=== PATIENT | male | born 1985 | race Caucasian/White ===

== ENCOUNTER 2017-12-25 12:17 | Emergency (ER) | payer BC ==
--- NOTE | 2017-12-25 13:43 | UC ---
Ear Complaint HPI - HPI Summary HPI Summary: Pt presents c/o URI like symptoms, cough, nasal congestion X2 weeks that has resolved since onset. Pt now c/o right ear painthat radiates to right upper molars. Pt also reports loss of hearing that began last night that resolved this morning - History of Current Complaint Stated Complaint: EAR/SINUS Time Seen by Provider: 12/25/17 13:22 Hx Obtained From: Patient Onset/Duration: Gradual Onset, Lasting Hours, Still Present Severity Initially: Mild Severity Currently: Moderate Associated Signs/Symptoms: Positive: Hearing Loss - resolved, URI Symptoms - Allergies/Home Medications Allergies/Adverse Reactions: Allergies Allergy/AdvReac Type Severity Reaction Status Date / Time No Known Allergies Allergy Verified 12/25/17 13:45 Home Medications: Home Medications Multivitamin [Multivitamins] 1 cap PO DAILY 12/25/17 [History Confirmed 12/25/17 ] PMH/Surg Hx/FS Hx/Imm Hx Previously Healthy: Yes - Surgical History Surgical History: None - Family History Known Family History: Negative: Cardiac Disease - Social History Occupation: Employed Full-time Lives: With Family Alcohol Use: Weekly Substance Use Type: None Smoking Status (MU): Never Smoked Tobacco Have You Smoked in the Last Year: No Review of Systems Constitutional: Negative Skin: Negative Eyes: Negative ENT: Ear Ache, Sinus Congestion Respiratory: Cough Cardiovascular: Negative Gastrointestinal: Negative Genitourinary: Negative Motor: Negative Neurovascular: Negative Musculoskeletal: Negative Neurological: Negative Psychological: Negative Is Patient Immunocompromised?: No All Other Systems Reviewed And Are Negative: Yes Physical Exam Triage Information Reviewed: Yes Appearance: Well-Appearing Vital Signs Reviewed: Yes Eye Exam: Normal ENT: Positive: Nasal congestion, TM red - right TM Dental Exam: Normal Neck exam: Normal Respiratory Exam: Normal Cardiovascular Exam: Normal Musculoskeletal Exam: Normal Neurological Exam: Normal Psychological Exam: Normal Skin Exam: Normal Ear Complaint Course/Dx - Differential Dx/Diagnosis Differential Diagnosis/HQI/PQRI: Otitis Media, URI Provider Diagnoses: Right OM Discharge - Sign-Out/Discharge Documenting (check all that apply): Discharge - Discharge Plan Condition: Stable Disposition: HOME Prescriptions: Amoxicillin PO (*) [Amoxicillin 500 MG CAP*] 500 mg PO Q12H #20 cap Patient Education Materials: Ear Infection (ED) Referrals: Juancho Traylor MD [Primary Care Provider] - If Needed - Billing Disposition and Condition Condition: STABLE Disposition: HOME
[2017-12-25 13:58] VITALS: BP 145/95
== END 2017-12-25 14:00 | disposition home or self-care (01) ==
LOC: UCCORT 12:17
DX: H66.91 Otitis media, unspecified, right ear (principal)
CPT/HCPCS: 99212; G0463

== ENCOUNTER 2018-08-03 11:07 | Day surgery (SDC) | payer BC ==
--- NOTE | 2018-07-25 09:42 | HP ---
AMENDED REPORT NOW INCLUDES COSIGNER DESIGNATION PREOPERATIVE HISTORY AND PHYSICAL: DATE OF ADMISSION/SURGERY: 08/03/18 DATE OF OFFICE VISIT: 07/22/18 ATTENDING SURGEON: Dr. David Bang.* (DICTATED BY LYLY MELLO) PROCEDURE: Left shoulder arthroscopic decompression, debridement, subpectoral biceps tenodesis, and possible rotator cuff repair. CHIEF COMPLAINT: Left shoulder. HISTORY OF PRESENT ILLNESS: Tripp is a 33-year-old male, who presents to the clinic for left shoulder pain due to biceps tendinitis and a possible rotator cuff tear. He has failed conservative measures and therefore agreed to undergo a left shoulder arthroscopic decompression, debridement, subpectoral biceps tenodesis, and possible rotator cuff repair with Dr. Bang on 08/03/18. PAST MEDICAL HISTORY: Heart murmur since childhood. PAST SURGICAL HISTORY: Oral surgery. Denies prior complications with anesthesia. MEDICATIONS: 1. Multivitamin 1 by mouth daily. 2. Ibuprofen 200 mg 1 by mouth as needed. ALLERGIES: No known drug allergies. FAMILY HISTORY: Positive for diabetes, heart disease, hypertension, and stroke. SOCIAL HISTORY: He lives with his spouse. 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 He denies tobacco use. He reports occasional alcohol consumption. He is right- hand dominant. REVIEW OF SYSTEMS: A 14-point review of systems was reviewed with the patient. Positive for current complaint, otherwise negative. Denies fever, chills, chest pain, shortness of breath, history of DVT or PE, history of bleeding disorder. PHYSICAL EXAMINATION GENERAL: A 33-year-old well-developed, well-nourished male, in no acute distress. Alert and oriented x3. Appropriate mood and affect. Appropriate balance and coordination of the upper extremities. VITAL SIGNS: Height 69.5, weight 297, pulse 92, blood pressure 152/88, BMI 43.2. HEENT: Normocephalic, atraumatic. PERRLA. Throat clear. NECK: Supple. PULMONARY: Lungs are clear to auscultation bilaterally. No wheezing, rhonchi, or rales. CARDIO: Regular rate and rhythm. S1, S2. No murmurs, gallops, or rubs. No edema. ABDOMEN: Positive bowel sounds. Soft, nontender. MUSCULOSKELETAL: Left upper extremity: Skin is intact. No warmth or erythema. Forward flexion to 160, abduction to 150, external rotation to 60, internal rotation to lumbar spine. Good strength to rotator cuff testing with pain. Positive Woodward, Speeds, impingement, Lopez-James. +2 radial pulse. Sensation intact to light touch distally. DIAGNOSTIC STUDIES: MRI of the left shoulder revealed evidence of posterior labral tear, superior labral tear, and rotator cuff tendinosis. No evidence of full- thickness rotator cuff tear. ASSESSMENT: Left shoulder biceps tendinitis, possible rotator cuff tear. PLAN: The patient is scheduled to undergo a left shoulder arthroscopic decompression, debridement, subpectoral biceps tenodesis, and possible rotator cuff repair with Dr. Bang on 08/03/18. He will follow up 10 to 14 days postop for followup and suture removal. Percocet will be used for postop pain management and Keflex for antibiotic prophylaxis. LYLY MELLO [id number]/[facility] #: [id number] [facility]ITALS[facility]man
[~2018-08-03 11:07] MED LIST: Buffered Lidocaine 0.9% SYRIN* 5 ML/SYR SYRINGE INTRADERM ONE; Famotidine IV* 10 MG/ML 2 ML (20 mg) IV ONE; Midazolam* 1 MG/ML 5 ML VIAL (5 MG) ONE; fentaNYL* 50 MCG/ML 2 ML VIAL (100 MCG VIAL) ONE
[2018-08-03] MEDS ORDERED: Famotidine IV* 10 MG/ML 2 ML (20 mg) ONE (11:27)
[2018-08-03] MEDS ORDERED: Buffered Lidocaine 0.9% SYRIN* 5 ML/SYR SYRINGE ONE (11:27)
[2018-08-03] MEDS ORDERED: ceFAZolin 2 GM in NS PREMIX(*) 2 GM/100 ML BAG IVPB ONE (11:27)
[2018-08-03] MEDS ORDERED: ceFAZolin 1 GM ADVAN(*) 1 GM ADDV.VIAL IVPB ONE (13:35)
[2018-08-03] MEDS ORDERED: Ropivacaine* 2 MG/ML 20 ML VIAL (0.2%) ONE (14:00)
[2018-08-03] MEDS ORDERED: Lidocaine 2% PF * 5 ML VIAL ONE ×2 (14:05→15:21)
[2018-08-03] MEDS ORDERED: ROPIVACAINE 5 MG/ML 30 ML BTL (0.5%) ONE (14:06)
[2018-08-03] MEDS ORDERED: KETAMINE HCL* 50 MG/ML 10 ML VIAL ONE (14:32)
[2018-08-03] MEDS ORDERED: fentaNYL* 50 MCG/ML 2 ML VIAL (100 MCG VIAL) ONE (14:47)
[2018-08-03] MEDS ORDERED: Propofol* 10 MG/ML 20 ML BTL IV PUSH ONE (15:21)
[2018-08-03] MEDS ORDERED: Dexamethasone IV* 4 MG/ML 1 ML (4 MG) ONE (15:21)
[2018-08-03] MEDS ORDERED: Ondansetron INJ* 2 MG/ML VIAL ONE (15:21)
[2018-08-03] MEDS ORDERED: Succinylcholine* 20 MG/ML 10 ML VIAL ONE (15:21)
[2018-08-03] MEDS ORDERED: Ketorolac INJ* 30 MG/ML 1 ML VIAL ONE (15:21)
[2018-08-03] MEDS ORDERED: Labetalol IV* 5 MG/ML 20 ML VIAL ONE (17:02)
[2018-08-03] MEDS ORDERED: Labetalol IV* 5 MG/ML 20 ML VIAL IV PUSH ONE (17:16)
[2018-08-03] MEDS ORDERED: Acetaminophen TAB* 325 MG PO PRN (17:17)
[2018-08-03] MEDS ORDERED: oxyCODONE TAB* 5 MG TAB PO PRN (17:17)
[2018-08-03] MEDS ORDERED: HYDROmorphone INJ1* 1 MG/ML SYRINGE IV PRN (17:17)
[2018-08-03] MEDS ORDERED: DiMENhydriNATE IV* 50 MG/ML VIAL IV PUSH PRN (17:17)
[2018-08-03] MEDS ORDERED: Naloxone* 0.4 MG/ML 1 ML VIAL IV PRN (17:17)
[2018-08-03 18:23] VITALS: BP 146/100
--- NOTE | 2018-08-08 20:57 | OP ---
DATE OF OPERATION: 08/03/18 [facility] DATE OF : 83 SURGEON: David Bang MD AUTOMOBILE SERVICE ADVISOR: LYLY Raya. An account assistant was needed for the entirety of the case to help with positioning, retraction, and was utilized throughout all portions of the case. ANESTHESIOLOGIST: Dr. Lacy. ANESTHESIA: General interscalene block. PRE-OP DIAGNOSIS: Left shoulder impingement with superior labral lesion. POST-OP DIAGNOSIS: Left shoulder impingement with superior labral lesion and high- grade partial thickness tearing of the rotator cuff. OPERATIVE PROCEDURES: 1. Left shoulder arthroscopy with extensive glenohumeral debridement. 2. Subacromial decompression with acromioplasty. 3. Rotator cuff repair using REGENETEN patch. 4. Biceps tenodesis, subpectoral. IMPLANTS USED: 1. Medium sized REGENETEN patch. 2. A 2.8 mm Q-Fix. INDICATIONS: Tripp Uriostegui is a 33-year-old male who has had a several-month history of shoulder pain diagnosed with a SLAP lesion as well as impingement. Risks and benefits of surgery were discussed at length. He has failed conservative management. He has elected to proceed with surgical treatment. Risks and benefits were discussed, included but not limited to bleeding; infection; damage to nerves, vessels, surrounding structures; wound nonhealing; persistent pain; need for surgery; scarring; stiffness; incomplete release of symptoms; and risks of anesthesia. DESCRIPTION OF PROCEDURE: The patient was greeted in the preoperative area by the attending surgeon. The correct extremity was marked, consent was confirmed. The patient then underwent interscalene nerve block by the anesthesiologist after which he was brought back to the operating room suite. He was placed in a supine position on the operating room table. He then underwent general anesthesia with endotracheal intubation after which he was placed in the right lateral decubitus position with all bony prominences padded. He was secured with a peg board and an axillary roll was placed. The left shoulder was then prepped and draped in the usual sterile fashion beginning with chlorhexidine soap, scrub, and alcohol wipe, and a final prep with ChloraPrep. After appropriate surgical pause indicating site, side, procedure, and administration of antibiotics, the standard postero-lateral portal was made sharply with an 11 blade. The scope was introduced through the joint, the joint was examined. There were grade 0 to 1 changes in the glenohumeral joint. There was an obvious SLAP type II tear. The undersurface of the rotator cuff had areas of high- grade partial thickness tearing. There was abundant erythema and synovitis. The biceps also had tendinosis as well as tendinitis. The inferior recess was intact. There were no obvious loose bodies. The anterior portal was made in an outside-in fashion. The biter was used to do a biceps tenotomy. Shaver was used to debride back the anterior, posterior, and superior labrum. The cuff was then gently probed. It was then marked with an 0 PDS suture to be identified on the bursal side. The scope was positioned in the bursal space and the shaver was used to debride back the abundant bursa that was present after the lateral portal was made in an outside-in fashion. Shaver was used to debride back the bursa. The undersurface of the acromion was skeletonized. He did have an obvious os acromiale that was present. The 4-0 oval omkar was then used to do an acromioplasty. Once this was complete and the CA ligament released, attention was directed to the cuff. The cuff was gently probed. The bursal site was intact, but because of concern for the undersurface, the decision was made to do REGENETEN patch augmentation to allow for the partial thickness tear to heal. The medium sized patch was then brought to the field and then placed under arthroscopic visualization through a separate stab incision. The cannula was placed to allow for placement of bioabsorbable tendon lianna. These were then stapled into position and then the patch was secured laterally using bone lianna. Final images were obtained, the wounds were then copiously irrigated. Attention was directed to the biceps. The bed was air planed to the left side. The anterior aspect of the shoulder was prepped again using ChloraPrep, then 15 blade was used to make an incision in line with the biceps tendon. Soft tissues were carefully dissected to expose the pec fascia. The remainder of the dissection was done bluntly. The pec was then elevated. The bicipital groove was palpated. The biceps was brought through the groove. The groove was prepared in the usual fashion. A 2.8 mm Q-Fix guide was then drilled unicortically and the Q-Fix was placed with excellent purchase. Sutures were then passed through the tendon in a Tod- Olvin type configuration and the excess stump was excised. Biceps was shuttled down to the wound. The wounds were then copiously irrigated. The anterior wound was closed in layers with 2-0 Vicryl and 3-0 Monocryl. The portals were closed with 3-0 nylon. Sterile dressings, a Cryo/Cuff, and UltraSling were applied. He was awoken from anesthesia and transferred to PACU in stable condition. POSTOPERATIVE PLAN: He will be nonweightbearing. He will be in a sling for 4 weeks. He will be discharged on pain medication. He will start physical therapy within 10 days. DVT prophylaxis considered but deferred due to no previous personal or family history. I will see the patient back in 10 to 14 days. [id number]/[facility] #: [id number] MTDD
== END 2018-08-03 18:24 | disposition home or self-care (01) ==
LOC: OR 11:07
PROVIDERS: ATTEND Orthopaedic Surgery
DX: S46.012A Strain of muscle(s) and tendon(s) of the rotator cuff of left shoulder, initial encounter (principal); S43.492A Other sprain of left shoulder joint, initial encounter; M75.42 Impingement syndrome of left shoulder; X58.XXXA Exposure to other specified factors, initial encounter; Y92.9 Unspecified place or not applicable; G89.18 Other acute postprocedural pain; R01.1 Cardiac murmur, unspecified; I10 Essential (primary) hypertension; G47.33 Obstructive sleep apnea (adult) (pediatric); E66.9 Obesity, unspecified
CPT/HCPCS: C1713; C1776; J0330; J0690; J1100; J1885; J2250; J2405; J2704; J2795; J3010

== ENCOUNTER 2018-11-10 17:28 | Emergency (ER) | payer BC ==
--- OUTSIDE RECORDS SUMMARY | 2018-11-10 18:35 | XMS REPORT | Continuity of Care Document ---
:1985 External Reference #:[id number] Author Name Jessi Hightower Care Team Providers Name Role Phone Juancho Traylor MD Primary Care Physician Unavailable Payers Type Date Identification Numbers Payment Provider Subscriber Policy Number: [id number] [facility] Tripp Uriostegui PayID: [id number] [address] [place] [address] Advance Directives Description No Information Available Problems Date Description Provider Status Onset: 03/17/2018 Superior glenoid labrum lesion of David Bang MD Active left shoulder, subsequent encounter Onset: 03/17/2018 Disorder of shoulder David Bang MD Active Onset: 11/16/2016 Acute serous otitis media Joce Rodney M.D. 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 Tobacco Use Start: Unknown End: Former Cigarette Smoker Unknown Tobacco Use Start: Unknown Never Smoked Cigars Tobacco Use Start: Unknown Never Smoked A Pipe Smokeless Tobacco Never Used Smokeless Tobacco ETOH Use Occasionally consumes alcohol Tobacco Use Start: Unknown Patient has never smoked Recreational Drug Use Denies Drug Use Smoking Status Reviewed: 10/13/18 Patient has never smoked Exercise Type/Frequency Exercises regularly Allergies, Adverse Reactions, Alerts Description No Known Drug Allergies Medications Medication Date Status Form Strength Qnty SIG Indications Ordering Provider Multi Vitamin Active Tablets 1 by mouth Unknown Daily 000 every day Ibuprofen Active Tablets 200mg 1 po as Unknown 000 needed Percocet Hx Tablets 5-325mg 20tabs 1 tabs by David 018 - mouth MD Beti every 4-6 018 hours as needed post op pain Keflex Hx Capsules 500mg 12caps take 1 tab Zaneb 018 - by mouth MD Beti four times 018 a day x 3 days post op. DO Not take before surgery Medications Administered in Office Medication Date Status Form Strength Qnty SIG Indications Ordering Provider Celestone 3 mg Administered Injection Cesar M and 3mg 018 MD Susan Immunizations Description No Information Available Vital Signs Date Vital Result Comment 10/13/2018 10:01am Height 69 inches 5'9" Weight 295.00 lb Heart Rate 76 /min Body Temperature 97.5 F Pain Level 2 O2 % BldC Oximetry 97 % BMI (Body Mass Index) 43.6 kg/m2 09/06/2018 3:06pm Height 69.5 inches 5'9.50" Heart Rate 80 /min BP Systolic 134 mmHg BP Diastolic 76 mmHg Body Temperature 98.6 F Pain Level 3 08/16/2018 2:58pm Height 69.5 inches 5'9.50" Heart Rate 76 /min BP Systolic 138 mmHg BP Diastolic 86 mmHg Body Temperature 97.4 F Pain Level 0 07/22/2018 9:01am Height 69.5 inches 5'9.50" Weight 297.00 lb Heart Rate 92 /min BP Systolic 152 mmHg BP Diastolic 88 mmHg BMI (Body Mass Index) 43.2 kg/m2 06/23/2018 10:31am Heart Rate 76 /min BP Systolic 162 mmHg BP Diastolic 102 mmHg Respiratory Rate 16 /min Pain Level 8 05/24/2018 9:20am Height 67.50 inches 5'7.50" Heart Rate 84 /min BP Systolic 130 mmHg BP Diastolic 88 mmHg Body Temperature 97.4 F Pain Level 4 03/17/2018 2:18pm Height 67.50 inches 5'7.50" Weight 287.50 lb Heart Rate 100 /min BP Systolic 162 mmHg BP Diastolic 100 mmHg Respiratory Rate 20 /min Body Temperature 98.6 F Pain Level 8 BMI (Body Mass Index) 44.4 kg/m2 02/22/2018 9:32am Height 67.50 inches 5'7.50" Weight 270.00 lb Heart Rate 78 /min BP Systolic Sitting 142 mmHg BP Diastolic Sitting 86 mmHg Respiratory Rate 20 /min Pain Level 2 BMI (Body Mass Index) 41.7 kg/m2 02/03/2018 9:22am Height 67.50 inches 5'7.50" Weight 273.00 lb BP Systolic Sitting 144 mmHg BP Diastolic Sitting 84 mmHg Respiratory Rate 16 /min Pain Level 2 can spike to an 8 BMI (Body Mass Index) 42.1 kg/m2 12/21/2016 1:53pm Height 67.50 inches 5'7.50" Weight 267.00 lb Heart Rate 74 /min BP Systolic Sitting 118 mmHg BP Diastolic Sitting 72 mmHg Respiratory Rate 18 /min O2 % BldC Oximetry 99 % BMI (Body Mass Index) 41.2 kg/m2 11/16/2016 2:52pm Height 67.50 inches 5'7.50" Weight 267.00 lb Heart Rate 64 /min BP Systolic 150 mmHg BP Diastolic 94 mmHg Respiratory Rate 16 /min Pain Level 0 O2 % BldC Oximetry 96 % BMI (Body Mass Index) 41.2 kg/m2 Results Description No Information Available Procedures Date Code Description Status 08/03/2018 93922 Arthroscopy Shoulder,W/Rotator Cuff Repair Completed 08/03/2018 68832 Arthroscopy Shoulder,W/Rotator Cuff Repair Completed 08/03/2018 80737 Arthroscopy Shoulder Debridement Extensive Completed 08/03/2018 41282 Arthroscopy Shoulder Debridement Extensive Completed 08/03/2018 55911 Tenodesis Biceps Long Tendon Completed 02/03/2018 62865 Rad Shoulder Comp, Min. 2 Views Completed 02/03/2018 31638 Inject/Drain Joint/Bursa Major W/O US Completed Encounters Type Date Location Provider Dx Diagnosis Office Visit 06/23/2018 Orthopedic David Bang MD S43.432D Superior glenoid 10:15a [facility] labrum lesion of left shoulder, subs encntr M75.42 Impingement syndrome of left shoulder Office Visit 05/24/2018 9:15a Rafal Bang S43.432D [facility] glenoid labrum [facility] lesion of left shoulder, subs encntr M75.42 Impingement syndrome of left shoulder Office Visit 03/17/2018 2:00p Rafal Bang S43.432D [facility] glenoid labrum [facility] lesion of left shoulder, subs encntr M75.42 Impingement syndrome of left shoulder S43.432A Superior glenoid labrum lesion of left shoulder, init encntr Office Visit 02/22/2018 9:30a [facility] Cesar Toussaint S43.432D [facility] MD glenoid labrum AT [place] lesion of left shoulder, subs encntr Office Visit 02/03/2018 9:15a [facility] Cesar Toussaint S43.422A Sprain of left [facility] MD rotator cuff AT [place] capsule, initial encounter S29.011A Strain of muscle and tendon of front wall of thorax, init M25.512 Pain in left shoulder Office Visit 12/21/2016 2:00p [facility] [place] [id number] Acute serous [facility] AT [place] otitis media, [place] left ear Office Visit 11/16/2016 2:45p [facility] [place] [id number] Acute serous [facility] [place] [facility] otitis media, [place] left ear Plan of Treatment Future Appointment(s):11/10/2018 10:00 am - David Bang MD at [facility]10/13/2018 - David Bang, MDM75.42 Impingement syndrome of left shoulderFollow up:Follow up: 4 [id number] Superior glenoid labrum lesion of left shoulder, subsequent
[2018-11-10 18:44] VITALS: BP 154/70
[2018-11-10 19:05] LABS: Influenza A Molecular NEGATIVE (Negative); Influenza B Molecular NEGATIVE (Negative)
--- NOTE | 2018-11-10 19:12 | UC ---
FLU HPI - HPI Summary HPI Summary: 33-year-old male presents with onset of fever, chills, body aches, fatigue, general malaise, nasal congestion, postnasal drip, and nonproductive cough yesterday. Denies ear pain, sore throat, chest pain, shortness of breath, abdominal pain, nausea, vomiting, or diarrhea. - History of Current Complaint Chief Complaint: UCGeneralIllness Stated Complaint: FEVER, COUGH, CONGESTION, ACHES Time Seen by Provider: 11/10/18 18:57 Hx Obtained From: Patient Pain Intensity: 5 - Allergy/Home Medications Allergies/Adverse Reactions: Allergies Allergy/AdvReac Type Severity Reaction Status Date / Time No Known Allergies Allergy Verified 11/10/18 18:38 Home Medications: Home Medications oxyCODONE/Acetamin 5/325 MG* [Percocet 5/325 TAB*] 1 tab PO Q6H PRN 11/10/18 [ History Confirmed 11/10/18] PMH/Surg Hx/FS Hx/Imm Hx Previously Healthy: Yes - Denies significant PMH - Surgical History Surgical History: Yes Surgery Procedure, Year, and Place: wisdom teeth. left shoulder sx--2018 - Family History Known Family History: Positive: Non-Contributory - Social History Occupation: Employed Full-time Lives: With Family Alcohol Use: Rare Alcohol Amount: 1-2 per week Substance Use Type: Excessive Caffeine Substance Use Comment - Amount & Last Used: coffee Smoking Status (MU): Former Smoker Amount Used/How Often: in college pack a week Have You Smoked in the Last Year: No When Did the Patient Quit Smoking/Using Tobacco: 2003 Review of Systems All Other Systems Reviewed And Are Negative: Yes Constitutional: Positive: Fever - Subjective, Chills, Fatigue, Other - Malaise Skin: Negative: Rash Eyes: Negative: Drainage, Eye Redness ENT: Positive: Nasal Discharge, Sinus Congestion. Negative: Sore Throat, Ear Ache, Sinus Pain/Tenderness Respiratory: Positive: Cough. Negative: Shortness Of Breath Cardiovascular: Negative: Palpitations, Chest Pain Gastrointestinal: Negative: Abdominal Pain, Vomiting, Diarrhea, Nausea Genitourinary: Positive: Negative Musculoskeletal: Positive: Myalgia Neurological: Positive: Negative Physical Exam - Summary Physical Exam Summary: GENERAL APPEARANCE: Well developed, obese, alert and cooperative, and appears to be in no acute distress. EYES: Conjunctiva clear. No drainage. Vision is grossly intact. EARS: External auditory canals and tympanic membranes clear, hearing grossly intact. NOSE: Mild-moderate nasal congestion. No nasal discharge. THROAT: Mild pharyngeal erythema with post-nasal drainage. No tonsilar inflammation, swelling, exudate, or lesions. Uvula midline. Oral cavity normal. Teeth and gingiva in good general condition. NECK: Neck supple, non-tender without lymphadenopathy. CARDIAC: Normal S1 and S2. No S3, S4 or murmurs. Rhythm is regular. There is no peripheral edema, cyanosis or pallor. Extremities are warm and well perfused. Capillary refill is less than 2 seconds. Peripheral pulses intact. LUNGS: Clear to auscultation without rales, rhonchi, wheezing or diminished breath sounds. Dry, non-productive cough. ABDOMEN: Positive bowel sounds. Soft, nondistended, nontender. No guarding or rebound. No masses or hepatosplenomegally. MUSKULOSKELETAL: ROM intact to all extremities. No joint erythema or tenderness. Normal muscular development. Normal gait. SKIN: Skin normal color, texture and turgor with no lesions or eruptions. Triage Information Reviewed: Yes Vital Signs: Initial Vital Signs Temp 99.9 F 11/10/18 18:39 Pulse 114 11/10/18 18:39 Resp 16 11/10/18 18:39 BP 154/70 11/10/18 18:39 Pulse Ox 97 11/10/18 18:39 Vital Signs Reviewed: Yes Diagnostics - Laboratory Diagnostic Studies Completed/Ordered: Rapid flu negative. Flu Course/Dx - Course Course Of Treatment: 33-year-old male presents with onset of fever, chills, body aches, fatigue, general malaise, nasal congestion, postnasal drip, and nonproductive cough yesterday. Denies ear pain, sore throat, chest pain, shortness of breath, abdominal pain, nausea, vomiting, or diarrhea. Afebrile. Hypertensive and mildly tachycardic otherwise vital signs stable. Exam reveals an adult male in no acute distress with mild to moderate nasal congestion, mild pharyngeal erythema with postnasal drip, no tonsillar swelling or exudate, no cervical lymphadenopathy, clear bilateral breath sounds, dry nonproductive cough , and otherwise unremarkable exam. Rapid flu was negative. Recommending symptomatic treatment for an viral upper respiratory infection. He is to return here or follow-up with his primary care provider in 7 days if symptoms do not improve. Anticipatory guidance and warning symptoms were reviewed with the patient. Verbalizes understanding and agrees with plan of care. - Differential Dx/Diagnosis Differential Diagnosis/HQI/PQRI: Bronchitis, Influenza, Pneumonia, Upper Respiratory Infection Provider Diagnosis: Upper respiratory infection with cough and congestion Discharge - Sign-Out/Discharge Documenting (check all that apply): Patient Departure All imaging exams completed and their final reports reviewed: No Studies - Discharge Plan Condition: Stable Disposition: HOME Prescriptions: Benzonatate CAP* [Tessalon 100 MG CAP*] 100 mg PO TID PRN #30 cap PRN Reason: Cough Fluticasone NASAL SPRAY 50MCG* [Flonase NASAL SPRAY 50MCG*] 2 spray BOTH NARES DAILY #1 btl Patient Education Materials: Upper Respiratory Infection (ED) Referrals: No Primary Care Phys,NOPCP [Primary Care Provider] - Additional Instructions: The rapid flu test performed in the clinic today was negative. Your history and exam are consistent with a viral upper respiratory infection. Viral infections do not respond to antibiotics and are limited to the treatment of symptoms. Viral infections typically run their course in 7-10 days. Drink plenty of fluids to avoid dehydration especially if you are running any fever. Use a saline rinse kit such as Neti Pot or NeilMed at least twice a day to help thin secretions and promote drainage of the sinuses. Use fluticasone (Flonase) nasal spray 2 sprays each nostril once daily. Use over the counter Sudafed as needed for congestion. Take Tessalon Perles 1 cap every 8 hours as needed for cough. Take over the counter acetaminophen (Tylenol) or ibuprofen (Advil, Motrin) according to directions as needed for pain or fever. Use salt water gargles several times a day if you have a sore throat. You may also use Chloraseptic spray or Cepacol lonzenges according to directions which contain a numbing medication and can provide some temporary relief from your sore throat. Return here or follow up with your primary care provider in 7 days if symptoms persist. Seek immediate medical attention in the emergency room if you have fever greater than 100.5 F despite taking acetaminophen or ibuprofen, have chest pain , difficulty breathing, are unable to swallow, or have any worsening of symptoms. - Billing Disposition and Condition Condition: STABLE Disposition: Home
== END 2018-11-10 19:29 | disposition home or self-care (01) ==
LOC: UCCORT 17:28
DX: J06.9 Acute upper respiratory infection, unspecified (principal); R05 Cough; R09.81 Nasal congestion; M79.10 Myalgia, unspecified site; Z87.891 Personal history of nicotine dependence
CPT/HCPCS: 99212; G0463